=== PATIENT | female | born 1995 | race Caucasian/White ===

== ENCOUNTER 2017-07-01 19:19 | Emergency (ER) | payer OTHER ==
[2017-07-01 19:25] VITALS: RESP 16; TEMP 98.1
--- NOTE | 2017-07-01 19:31 | EDPHY ---
H & P Stated Complaint: c/o anxiety/shakiness since this am Time Seen by Provider: 07/01/17 19:29 HPI/ROS: HPI: This is a 21-year-old female who presents with Chief Complaint: c/o anxiety/shakiness since this am Location: body Quality:anxiety/shakiness Duration: since this morning Signs and Symptoms: no fever, + nausea, no vomiting, no hematemesis, no blood in stool, no abdominal bloating, no diarrhea, no back pain, no urinary symptoms , no vaginal bleeding/discharge, no indigestion, no chest pain, no shortness of breath Timing: Sudden, constant Severity: Moderate Context: Patient is a sophomore at [employer] presents with complaints of entire body shakiness, nausea, "not feeling right," alternating between hot and cold starting this morning. Roommate reports that she has been in her bed all day not acting like herself. Patient denies suicidal ideation homicidal ideation. Reports that her family has a history of anxiety but she never had an official diagnosis. She went home over break recently, she had a similar episode that self resolved after several hours. She denies any particular stressors/triggers. While she is home in [place], she went to see her primary care provider who examined her and told her she had anxiety. No history of lung disease. Denies chest pain/shortness of breath/wheezing/fever/cough/ sore throat/lower leg swelling or pain. Patient has an IUD in place. denies recreational drug use. Modifying Factors: None Comment: ROS: see HPI Constitutional: No fever, no chills, no weight loss Eyes: No blurred vision Respiratory: No shortness of breath, no cough Cardiovascular: No chest pain, no palpitations Gastrointestinal: + nausea, no vomiting, no diarrhea, no hematemesis, no blood in stool Genitourinary: No dysuria, no blood in urine Extremities: No myalgias, no edema Neurologic: No weakness, no numbness Skin: No rashes, no petechiae Hematologic: No bruising, no bleeding MEDICAL/SURGICAL/SOCIAL HISTORY: Medical history: Generally healthy. Does not take any regular medications. Surgical history: Denies Social history: College student. originally from [place], [place]. CONSTITUTIONAL: Very pleasant anxious well-appearing teenage white female, shaking legs and arms and rhythmic pattern, awake and alert, no obvious distress HEENT: Atraumatic and normocephalic, PERRL, EOMI. Tympanic membranes clear. Oropharynx clear, no exudate and moist pink mucosa. Airway patent. No lymphadenopathy. No meningismus. Cardiovascular: Normal S1/S2, regular rate, regular rhythm, without murmur rub or gallop. PULMONARY/CHEST: Symmetrical and nontender. Clear to auscultation bilaterally. Good air movement. No accessory muscle usage. ABDOMEN: Soft, nondistended, nontender, no rebound, no guarding, no peritoneal signs, no masses or organomegaly. No CVAT. EXTREMITIES: 2/2 pulses, strength 5/5, no deformities, no clubbing, no cyanosis or edema. NEUROLOGICAL: no focal neuro deficits. GCS 15. SKIN: Warm and dry, no erythema. no rash. Good capillary refill. PSYCH: Good eye contact, no flight of ideas, organized thought process, good insight and judgment, no auditory and visual command hallucinations, no suicidal ideation with a plan, no homicidal ideation, no paranoia Source: Patient, Family (Roommate) Exam Limitations: No limitations - Personal History LMP (Females 10-55): IUD In Place - Medical/Surgical History Hx Asthma: No Hx Chronic Respiratory Disease: No Hx Diabetes: No Hx Cardiac Disease: No Hx Renal Disease: No Hx Cirrhosis: No Hx Alcoholism: No Hx HIV/AIDS: No Hx Splenectomy or Spleen Trauma: No Other PMH: none - Social History Smoking Status: Never smoked Constitutional: Initial Vital Signs Temperature (C) 36.7 C 07/01/17 19:22 Heart Rate 64 07/01/17 19:22 Respiratory Rate 16 07/01/17 19:22 Blood Pressure 131/74 H 07/01/17 19:22 O2 Sat (%) 98 07/01/17 19:22 O2 Delivery Mode Room Air Allergies/Adverse Reactions: No Known Allergies Allergy (Unverified 07/01/17 19:25) Home Medications: Medication Instructions Recorded Iud 07/01/17 hydrOXYzine HCL [Vistaril] 50 mg PO Q8 PRN #12 tab 07/01/17 Medical Decision Making - Diagnostics EKG Interpretation: 12 lead EKG: Indication: Shakiness Rhythm: Normal sinus rhythm, rate 68 beats per minute [place]: Right Intervals: Normal QRS: Normal ST segments: Normal INTERPRETATION: No acute ischemic changes The 12 lead EKG was interpreted by myself and with attending. ED Course/Re-evaluation: EKG, labs, IV fluids, IV medications ordered Patient is afebrile with no systemic signs. Given 1 L normal saline and IV Ativan 1 mg with complete resolution of symptoms Labs reviewed and show no signs of arrhythmia/thyroid disease/anemia/ electrolyte imbalance/acute kidney injury This patient was seen under the supervision of my primary supervising physician. I evaluated care for this patient independently. Discussed this patient with Dr. Pena who did not see the patient. Differential Diagnosis: Differential diagnosis includes but is not limited to anemia, thyroid disease, viral syndrome, depression, anxiety. - Data Points Laboratory Results: Laboratory Results 07/01/17 19:20 07/01/17 19:20 07/01/17 07/01/17 07/01/17 19:20 19:20 19:20 WBC RBC Hgb Hct MCV MCH MCHC RDW Plt Count MPV Neut % (Auto) Lymph % (Auto) [place] % (Auto) Eos % (Auto) Baso % (Auto) Nucleat RBC Rel Count Absolute Neuts (auto) Absolute Lymphs (auto) Absolute Monos (auto) Absolute Eos (auto) Absolute Basos (auto) Absolute Nucleated RBC Immature Gran % Immature Gran # D-Dimer < 0.27 ug/mLFEU ug/mLFEU (0.00-0.50) Sodium 142 mEq/L mEq/L (135-145) Potassium 4.1 mEq/L mEq/L (3.5-5.2) Chloride 102 mEq/L mEq/L (97-110) Carbon Dioxide 25 mEq/l mEq/l (22-31) Anion Gap 15 mEq/L mEq/L (8-16) BUN 12 mg/dL mg/dL (7-23) Creatinine 0.8 mg/dL mg/dL (0.6-1.0) Estimated GFR > 60 Glucose 109 mg/dL H mg/dL (70-100) Calcium 10.2 mg/dL mg/dL (8.5-10.4) Total Bilirubin 0.9 mg/dL mg/dL (0.1-1.4) Conjugated Bilirubin 0.3 mg/dL mg/dL (0.0-0.5) Unconjugated Bilirubin 0.6 mg/dL mg/dL (0.0-1.1) AST 26 IU/L IU/L (14-46) ALT 38 IU/L IU/L (9-52) Alkaline Phosphatase 84 IU/L IU/L (38-126) Total Protein 8.0 g/dL g/dL (6.3-8.2) Albumin 4.8 g/dL g/dL (3.5-5.0) TSH 1.060 uIU/mL uIU/mL (0.465-4.680) Beta HCG, Qual NEGATIVE 07/01/17 19:20 WBC 10.38 10^3/uL H 10^3/uL (3.80-9.50) RBC 4.76 10^6/uL 10^6/uL (4.18-5.33) Hgb 14.8 g/dL g/dL (12.6-16.3) Hct 41.8 % % (38.0-47.0) MCV 87.8 fL fL (81.5-99.8) MCH 31.1 pg pg (27.9-34.1) MCHC 35.4 g/dL g/dL (32.4-36.7) RDW 12.3 % % (11.5-15.2) Plt Count 303 10^3/uL 10^3/uL (150-400) MPV 11.2 fL fL (8.7-11.7) Neut % (Auto) 66.9 % % (39.3-74.2) Lymph % (Auto) 24.9 % % (15.0-45.0) [place] % (Auto) 7.1 % % (4.5-13.0) Eos % (Auto) 0.4 % L % (0.6-7.6) Baso % (Auto) 0.3 % % (0.3-1.7) Nucleat RBC Rel Count 0.0 % % (0.0-0.2) Absolute Neuts (auto) 6.95 10^3/uL H 10^3/uL (1.70-6.50) Absolute Lymphs (auto) 2.58 10^3/uL 10^3/uL (1.00-3.00) Absolute Monos (auto) 0.74 10^3/uL 10^3/uL (0.30-0.80) Absolute Eos (auto) 0.04 10^3/uL 10^3/uL (0.03-0.40) Absolute Basos (auto) 0.03 10^3/uL 10^3/uL (0.02-0.10) Absolute Nucleated RBC 0.00 10^3/uL 10^3/uL (0-0.01) Immature Gran % 0.4 % % (0.0-1.1) Immature Gran # 0.04 10^3/uL 10^3/uL (0.00-0.10) D-Dimer Sodium Potassium Chloride Carbon Dioxide Anion Gap BUN Creatinine Estimated GFR Glucose Calcium Total Bilirubin Conjugated Bilirubin Unconjugated Bilirubin AST ALT Alkaline Phosphatase Total Protein Albumin TSH Beta HCG, Qual Medications Given: Discontinued Medications Sodium Chloride (Ns) 1,000 mls @ 0 mls/hr IV ONCE ONE; Wide Open PRN Reason: Protocol Stop: 07/01/17 19:37 Last Admin: 07/01/17 19:48 Dose: 1,000 mls Lorazepam (Ativan Injection) 1 mg IVP EDNOW ONE Stop: 07/01/17 19:38 Last Admin: 07/01/17 19:48 Dose: 1 mg Departure - Departure Disposition: Home, Routine, Self-Care Clinical Impression: Anxiousness Condition: Good Instructions: Anxiety (ED) Additional Instructions: Your laboratory evaluation today did not show any signs of anemia, electrolyte imbalance, blood clot, kidney insufficiency, infection. Please establish care with behavioral health outpatient and discuss your current situation. Referrals: Shari Bailey MD [Medical Doctor] - As per Instructions Prescriptions: hydrOXYzine HCL [Vistaril] 50 mg PO Q8 PRN #12 tab PRN Reason: Anxiety
[2017-07-01] MEDS ORDERED: NS 1,000 ML IV ONE (19:36)
[2017-07-01] MEDS ORDERED: LORazepam 2 MG/ML INJ IVP ONE (19:37)
[2017-07-01 19:55] LABS: PLATELET COUNT 303 10^3/uL (150-400)
--- NOTE | 2017-07-01 19:55 | CPEKG ---
Heart Rate: 68 RR Interval: 882 P-R Interval: 176 QRSD Interval: 102 QT Interval: 412 QTC Interval: 439 P [place]: -13 QRS [place]: 121 T Wave [place]: 43 EKG Severity - OTHERWISE NORMAL ECG - EKG Impression: SINUS ARRHYTHMIA, RATE 50-79 EKG Impression: RIGHT AXIS DEVIATION Electronically Signed By: Deidre Pena 01-Jul-2017 21:33:53
[2017-07-01 20:53] VITALS: BP 141/80; PULSE 79; O2SAT 96
== END 2017-07-01 21:05 | disposition home or self-care (01) ==
DX: F41.9 Anxiety disorder, unspecified (principal); E86.9 Volume depletion, unspecified
CPT/HCPCS: 96374; J2060

== ENCOUNTER 2018-03-27 13:51 | Emergency (ER) | payer OTHER ==
--- NOTE | 2018-03-27 14:08 | EDPHY ---
H & P Stated Complaint: CP - Personal History LMP (Females 10-55): IUD [address] Current Tetanus/Diphtheria Vaccine: Yes Current Tetanus Diphtheria and Acellular Pertussis (TDAP): Yes - Medical/Surgical History Hx Asthma: Yes Hx Chronic Respiratory Disease: No Hx Diabetes: No Hx Cardiac Disease: No Hx Renal Disease: No Hx Cirrhosis: No Hx Alcoholism: No Hx HIV/AIDS: No Hx Splenectomy or Spleen Trauma: No Other PMH: asthma, anxiety - Social History Smoking Status: Current every day smoker Time Seen by Provider: 03/27/18 14:08 Constitutional: Initial Vital Signs Temperature (C) 37.2 C 03/27/18 13:56 Heart Rate 55 L 03/27/18 13:56 Respiratory Rate 16 03/27/18 13:56 Blood Pressure 147/97 H 03/27/18 13:56 O2 Sat (%) 99 03/27/18 13:56 O2 Delivery Mode Room Air Allergies/Adverse Reactions: No Known Allergies Allergy (Unverified 03/27/18 13:55) Home Medications: Medication Instructions Recorded Iud 07/01/17 hydrOXYzine HCL [Vistaril] 50 mg PO Q8 PRN #12 tab 07/01/17 Albuterol 03/27/18 Medical Decision Making - Diagnostics Imaging: I viewed and interpreted images myself - Diagnostics Imaging Results: Imaging Impressions Chest X-Ray 03/27/18 14:16 Impression: Borderline-cardiac silhouette enlargement. ED Course/Re-evaluation: CHIEF COMPLAINT: Chest pain HISTORY OF PRESENT ILLNESS: This patient is a healthy 22 year old female complaining of "heart pain". Several weeks ago, had a syncopal episode before eating. Today, she had another near-syncopal episode and has felt very out of it. During this time she has had several episodes of chest pain which is generally a dull discomfort lasting about 2 hours. She endorses sharp pains with inspiration. Her discomfort is worse when she lies supine. She denies any recent illness including cough, cold , fever, chills. Denies any prolonged travel. No calf pain or swelling. She denies any family history of CAD. No personal or family history of clotting disorders. She endorses personal and family history of bradycardia. REVIEW OF SYSTEMS: A comprehensive 10 system review of systems is otherwise negative aside from elements mentioned in the history of present illness and medical decision making. PHYSICAL EXAM: HR, BP, O2 Sat, RR. Temp noted General Appearance: Alert, well hydrated, appropriate, and non-toxic appearing. Head: Atraumatic without scalp tenderness or obvious injury Eyes: Pupils equal, round, reactive to light and accommodation, EOMI, no trauma , no injection. Ears: Clear bilaterally, no perforation, normal landmarks Nose: Atraumatic, no rhinorrhea, clear. Throat: There is no erythema or exudates, no lesions, normal tonsils, mucus membranes moist. Neck: Supple, 2+ carotid upstroke, nontender, no lymphadenopathy. Respiratory: No retractions, no distress, no wheezes, and no accessory muscle use. Lungs are clear to auscultation bilaterally. Cardiovascular: Regular rate and rhythm, no murmurs, rubs, or gallops. Bilateral carotid, radial, dorsalis pedis, and posterior tibial pulses intact. Good capillary refill all extremities. Gastrointestinal: Abdomen is soft, nontender, non-distended, no masses, no rebound, no guarding, no peritoneal signs. Musculoskeletal: Normal active ROM of all extremities, atraumatic. Neurological: Alert, appropriate, and interactive. The patient has normal DTRs and non-focal cranial nerves, motor, sensory, and cerebellar exam. Skin: No rashes, good turgor, no nodules on palpation. Past medical history: Asthma. Anxiety. Past surgical history: Noncontributory. Family history: Noncontributory. Social history: Student. Lives in [place]. Does not abuse tobacco, drugs, or alcohol. DIAGNOSTICS/PROCEDURES/CRITICAL CARE TIME: The 12 lead EKG was interpreted by myself. See hard copy and/or "tracemaster" electronic copy for interpretation. Sinus bradycardia, Q waves noted to the anterior leads.. DIFFERENTIAL DIAGNOSIS: The differential diagnosis for the patient's chest pain included but was not limited to myocardial ischemia, pulmonary embolus, chest wall pain, pleural inflammation, and pulmonary infectious causes. MEDICAL DECISION MAKIN22 y/o female presents following a syncopal and near-syncopal episode in the last week and several episodes of recurrent dull chest pain. Exam unremarkable. Plan for EKG, chest x-ray, labs including CBC, chemistries, troponin, d-dimer, BHCG. 14:[address] Hackett, perishable fruit inspector due to abnormal EKG. Plan for echocardiogram for further evaluation. Laboratory studies largely unremarkable. Troponin negative. CXR largely unremarkable, borderline cardiac silhouette enlargement per radiologist report. D-dimer negative. 15:00 Care of this patient transferred to Dr. Rodriguez pending further cardiac evaluation. (Chriss Angulo) Other Provider: Patient's care transferred to ca pending completion of cardiology evaluation. at 1545, was notified by Dr. Hackett that patient is to be discharged and transferred to [facility] in order to arrange Holter monitor placement. (Denys Rodriguez) - Data Points Laboratory Results: Laboratory Results 03/27/18 14:16 03/27/18 14:16 03/27/18 03/27/18 03/27/18 14:59 14:41 14:20 WBC RBC Hgb Hct MCV MCH MCHC RDW Plt Count MPV Neut % (Auto) Lymph % (Auto) [place] % (Auto) Eos % (Auto) Baso % (Auto) Nucleat RBC Rel Count Absolute Neuts (auto) Absolute Lymphs (auto) Absolute Monos (auto) Absolute Eos (auto) Absolute Basos (auto) Absolute Nucleated RBC Immature Gran % Immature Gran # D-Dimer Sodium Potassium Chloride Carbon Dioxide Anion Gap BUN Creatinine Estimated GFR Glucose Calcium POC Troponin I 0.00 ng/mL ng/mL (0.00-0.08) TSH Pending Free T4 Pending Free T3 Pending Beta HCG, Qual Urine Opiates Screen NEGATIVE (NEGATIVE) Urine Barbiturates NEGATIVE (NEGATIVE) Ur Phencyclidine Scrn NEGATIVE (NEGATIVE) Ur Amphetamine Screen NEGATIVE (NEGATIVE) U Benzodiazepines Scrn NEGATIVE (NEGATIVE) Urine Cocaine Screen NEGATIVE (NEGATIVE) U Marijuana (THC) Screen NON-NEGATIVE H (NEGATIVE) 03/27/18 03/27/18 03/27/18 14:16 14:16 14:16 WBC RBC Hgb Hct MCV MCH MCHC RDW Plt Count MPV Neut % (Auto) Lymph % (Auto) [place] % (Auto) Eos % (Auto) Baso % (Auto) Nucleat RBC Rel Count Absolute Neuts (auto) Absolute Lymphs (auto) Absolute Monos (auto) Absolute Eos (auto) Absolute Basos (auto) Absolute Nucleated RBC Immature Gran % Immature Gran # D-Dimer < 0.27 ug/mLFEU ug/mLFEU (0.00-0.50) Sodium 140 mEq/L mEq/L (135-145) Potassium 4.3 mEq/L mEq/L (3.3-5.0) Chloride 107 mEq/L mEq/L (97-110) Carbon Dioxide 23 mEq/l mEq/l (22-31) Anion Gap 10 mEq/L mEq/L (6-14) BUN 13 mg/dL mg/dL (7-23) Creatinine 0.8 mg/dL mg/dL (0.6-1.0) Estimated GFR > 60 Glucose 80 mg/dL mg/dL (70-100) Calcium 9.9 mg/dL mg/dL (8.5-10.4) POC Troponin I TSH Free T4 Free T3 Beta HCG, Qual NEGATIVE Urine Opiates Screen Urine Barbiturates Ur Phencyclidine Scrn Ur Amphetamine Screen U Benzodiazepines Scrn Urine Cocaine Screen U Marijuana (THC) Screen 03/27/18 14:16 WBC 6.35 10^3/uL 10^3/uL (3.80-9.50) RBC 4.88 10^6/uL 10^6/uL (4.18-5.33) Hgb 15.1 g/dL g/dL (12.6-16.3) Hct 44.6 % % (38.0-47.0) MCV 91.4 fL fL (81.5-99.8) MCH 30.9 pg pg (27.9-34.1) MCHC 33.9 g/dL g/dL (32.4-36.7) RDW 12.2 % % (11.5-15.2) Plt Count 293 10^3/uL 10^3/uL (150-400) MPV 11.4 fL fL (8.7-11.7) Neut % (Auto) 55.8 % % (39.3-74.2) Lymph % (Auto) 33.4 % % (15.0-45.0) [place] % (Auto) 8.8 % % (4.5-13.0) Eos % (Auto) 1.4 % % (0.6-7.6) Baso % (Auto) 0.3 % % (0.3-1.7) Nucleat RBC Rel Count 0.0 % % (0.0-0.2) Absolute Neuts (auto) 3.54 10^3/uL 10^3/uL (1.70-6.50) Absolute Lymphs (auto) 2.12 10^3/uL 10^3/uL (1.00-3.00) Absolute Monos (auto) 0.56 10^3/uL 10^3/uL (0.30-0.80) Absolute Eos (auto) 0.09 10^3/uL 10^3/uL (0.03-0.40) Absolute Basos (auto) 0.02 10^3/uL 10^3/uL (0.02-0.10) Absolute Nucleated RBC 0.00 10^3/uL 10^3/uL (0-0.01) Immature Gran % 0.3 % % (0.0-1.1) Immature Gran # 0.02 10^3/uL 10^3/uL (0.00-0.10) D-Dimer Sodium Potassium Chloride Carbon Dioxide Anion Gap BUN Creatinine Estimated GFR Glucose Calcium POC Troponin I TSH Free T4 Free T3 Beta HCG, Qual Urine Opiates Screen Urine Barbiturates Ur Phencyclidine Scrn Ur Amphetamine Screen U Benzodiazepines Scrn Urine Cocaine Screen U Marijuana (THC) Screen Medications Given: Discontinued Medications Sodium Chloride (Ns) 1,000 mls @ 0 mls/hr IV EDNOW ONE; Wide Open PRN Reason: Protocol Stop: 03/27/18 15:31 Last Admin: 03/27/18 15:40 Dose: 1,000 mls Point of Care Test Results: Chemistry 03/27/18 14:20 POC Troponin I 0.00 ng/mL ng/mL (0.00-0.08) Departure - Departure Disposition: Home, Routine, Self-Care Condition: Good Additional Instructions: Follow up with [facility] for Holter monitor placement as discussed with the perishable fruit inspector. Return to the emergency department for fever, chest pain, shortness of breath, or other worsening of condition. Referrals: DOCTOR LOUIS [Other] - As per Instructions Deep Hackett MD [Medical Doctor] - As per Instructions Report Scribed for: Chriss Angulo Report Scribed by: Cindy Simmons Date of Report: 03/27/18 Time of Report: 15:34
[2018-03-27 14:37] LABS: PLATELET COUNT 293 10^3/uL (150-400)
--- NOTE | 2018-03-27 15:13 | PDCONSULT ---
Ophthalmic Surgical Assistant Note: CC: Chest pains and "feeling poorly" Requesting physician: ER team HPI: Patient is a 22 y/o female, with fairly unremarkable past medical history (no HTN, HLP, DM, or CAD), who presented to the ER with a friend after feeling poorly today. Chest pains and pressure have been noted for several weeks, and about two weeks ago, there is report of a "syncopal" event. Today, the patient was feeling like she might pass out coupled with chest pains (substernal, bilaterally). The patient described the pains as "heart pain". On telemetry, the patient's heart rate was noted to be 42 bpm. When questioned about this low rate, the patient stated that she has "...always had heart rates that slow...". Family history (moreso on her mother's side) is also remarkable for "slower heart rates". She does not regularly drink, but does use marijuana (a "bowl" was smoked yesterday). There has not been any clear correlation between her use of MJ and symptoms. No regular or routine exercise. When she does activity, she has noted that her heart rate increases as expected. She reports a mild to moderate degree of anxiety in general, and self medicates with benadryl from time to time when the anxiety is particularly elevated. No sudden to the family. ECG with Q waves noted to the anterior leads. Labs were drawn in the ER, and troponin was noted to be normal. testing was also normal. Patient was requestioned about the concerns about falling asleep and not waking up, only to find out that a close friend apparently did just that. In speaking about it, the patient broke down. The event was two year ago. Echocardiogram was performed at bedside with normal LVEF, chamber dimensions, and wall motion. No clear valve pathology was noted. Remainder of the 12 point review of systems was within normal limits PMx: (1) Anxiety (2) Known history of sinus bradycardia SHx: (1) "occasional" marijuana use (2) Rare ETOH (3) Rare tobacco use FHx: No sudden cardiac Family history of bradycardia NKDA No prescription drugs Vitals as documented PE: GEN: Anxious appearing young female SKIN: no clear rashes noted HEENT: NCAT with PERRLA Neck: no JVD Lungs: CTA COR: RRR ABD: soft EXT: no edema Neuro: no focal deficits were noted LABS: normal troponin BHCG normal Electrolytes all within normal limits TSH, T3, T4 (pending) Tox screen (pending) ECG: sinus bradycardia with "anterior Q" waves as per computer interpretation - review of the ECG without chuck pathology postulated Echocardiography Normal chamber dimensions, normal systolic function, no valve pathology, no LVH Assessment: 22 y/o female with history of anxiety (? depression) who presents to the ER after 4-6 weeks of feeling poorly, but an accelerated feeling of this being noted today. About two weeks ago, a "syncopal" event was noted. Presyncope was also noted today. Heart rates on telemetry were suppressed to mid 40's, but this is reportedly not atypical for the patient. Labs without gross pathology noted (thyroid and tox screen were still pending). Echocardiography was grossly normal. No cardiac biomarker elevation was noted. Plan: Two options were discussed with the patient A: admission to hospital for 23 hour observation - monitor heart rate and rhythm. Some of the labs that have not come back will be back in that time frame. Likely 30 day [employer] monitor with outpatient cardiology follow up after further acquisition of telemetry data B: discharge to home, but would arrange for [employer] monitor and outpatient cardiology follow up Would run a liter of 0.9 NS into the patient while she is in the ER [facility] to set up a 48 hour holter monitor. Would have the patient follow up with cardiology after testing has been completed.
[2018-03-27] MEDS ORDERED: NS 1,000 ML IV ONE (15:30)
--- NOTE | 2018-03-27 15:48 | ECHO ---
[email or web address] [address] [address] Main: [phone] Fax: Transthoracic Echocardiogram Name: CECILLE ARELLANO MR#: [id number] Study Date: 03/27/2018 Study Time: 02:30 PM Date of : 1995 Age: 22 year(s) Height: 165.1 cm (65 in.) Weight: 68.04 kg (150 lb.) BSA: 1.75 m2 Gender: Female Examination: Echo Indication: Chest Pain Image Quality: Adequate Contrast: Requested by: Chriss Angulo BP: / Heart Rate: Rhythm: Indication: Chest Pain Procedure Staff Dural Mechanic: Neli Acevedo [facility] Reading Physician: Deep Hackett MD Requesting Provider: Conclusions: Normal size left ventricle. No LV hypertrophy. Normal global systolic LV function. EF is 65 %. No regional wall motion abnormality. Normal diastolic LV function. The left atrium is normal in size. The right atrium is normal in size. The aortic valve is tri-leaflet. The tricuspid valve is normal in appearance and function. Right ventricular systolic pressure measures 25mmHg. The pulmonic valve is normal in appearance and function. Normal size ascending aorta measuring 2.1 cm. No pericardial effusion. Measurements: Chambers Valvular Assessment AV/MV Valvular Assessment TV/PV Normal Normal Normal Name Value Range Name Value Range Name Value Range Ao Deya (2D): 2.1 cm (1.4 cm-2.6 AV Vmax: 1.43 m/s (1 m/s-1.7 TR Vmax: 2.23 mm/s ( - ) cm) m/s) TR PGmax: 20 mmHg ( - ) IVSd (2D): 0.8 cm (0.6 cm-1.1 AV maxP mmHg ( - ) syst. PAP: 25 mmHg ( - ) cm) AV meanP mmHg ( - ) PV Vmax: 0.98 m/s (0.6 m/s-0.9 LVDd (2D): 4.7 cm (3.9 cm-5.3 LVOT Vmax: 1.23 m/s (0.7 m/s-1.1 m/s) cm) m/s) PV PGmax: 4 mmHg ( - ) LVDs (2D): 2.8 cm (2.1 cm-4 ALENA (Vmax): 2.4 cm2 ( - ) cm) ALENA (VTI): 2.2 cm ( - ) LVPWd (2D): 0.9 cm ( - ) MV E Vmax: 1.29 m/s ( - ) LVOTd 1.9 cm 1.9 cm mm MV A Vmax: 0.46 m/s ( - ) LVEF (BP): 65 % (>=55 %) MV E/A: 2.80 ( - ) Patient: CECILLE ARELLANO Study Date: 03/27/2018 Page 1 of 2 02:30 PM RVDd(2D): 2.8 cm (1.9 cm-3.8 MV PHT: 0.096 s ( - ) cmmm) MVA (PHT): 2.3 s ( - ) Continued Measurements: Chambers Valvular Assessment AV/MV Valvular Assessment TV/PV Name Value Name Value Name Value LADs: 3.0 cm MV DecTime: 306 m/s CVP (est.): 5 mmHg LADs Lon.2 cm MV E/E' Septal: 10.80 LA Area: 15.0 cm2 MV E/E' Lateral: 7.40 LA Volume: 35 ml LA Volume Index: 20.0 ml/m2 RA Area: 13.4 cm2 Additional Vessels Name Value Ao Ascendin.1 cm Inferior Vena Cava: 1.9 cm Findings: Left Ventricle: Normal size left ventricle. No LV hypertrophy. Normal global systolic LV function. EF is 65 %. No regional wall motion abnormality. Normal diastolic LV function. Right Ventricle: Normal size right ventricle. Normal RV function. Left Atrium: The left atrium is normal in size. Right Atrium: The right atrium is normal in size. Mitral Valve: The mitral valve is normal in appearance and function. Mild mitral valve regurgitation is present. No mitral stenosis is present. Aortic Valve: The aortic valve is tri-leaflet. There is no significant aortic valve regurgitation. No aortic valve stenosis is present. Tricuspid Valve: The tricuspid valve is normal in appearance and function. Mild tricuspid regurgitation is present. The pulmonary artery pressure is normal. Right ventricular systolic pressure measures 25mmHg. Pulmonic Valve: The pulmonic valve is normal in appearance and function. There is no pulmonic regurgitation seen. Aorta: The aorta is normal. Normal size aortic root measuring 2.1 cm. Normal size ascending aorta measuring 2.1 cm. IVC: The IVC is normal sized. Pericardium: No pericardial effusion. No pleural effusion. (No Signature Object) Patient: CECILLE ARELLANO Study Date: 03/27/2018 Page 2 of 2 02:30 PM [id number]
[2018-03-27 15:56] VITALS: BP 120/73
--- NOTE | 2018-03-27 20:31 | CPEKG ---
Test Reason : OPEN Blood Pressure : / mmHG Vent. Rate : 044 BPM Atrial Rate : 044 BPM P-R Int : 168 ms QRS Dur : 089 ms QT Int : 416 ms P-R-T Axes : 011 112 061 degrees QTc Int : 356 ms Sinus bradycardia Right axis deviation Abnormal Q suggests anterior infarct Confirmed by Yusra Buitrago ([id number]) on 03/27/2018 8:30:58 PM Referred By: Confirmed By:Yusra Buitrago
== END 2018-03-27 16:00 | disposition home or self-care (01) ==
DX: R07.9 Chest pain, unspecified (principal); R55 Syncope and collapse; F17.200 Nicotine dependence, unspecified, uncomplicated
CPT/HCPCS: 80305; 84481-90; 84484-PO

== ENCOUNTER → 2018-08-27 | Outpatient (CLI) | payer OTHER | LOC: BMCIMAGING 15:21 | PROVIDERS: ATTEND Family Medicine | DX: S69.92XA Unspecified injury of left wrist, hand and finger(s), initial encounter (principal) ==